=== PATIENT | female | born 1995 | race Caucasian/White ===

== ENCOUNTER 2024-10-08 10:29 | Emergency (ER) | payer OTHER ==
[2024-10-08 10:33] VITALS: PULSE 91; O2SAT 99
== END 2024-10-08 11:53 | disposition left against medical advice (07) ==
LOC: ER 10:29
DX: S01.01XA Laceration without foreign body of scalp, initial encounter (principal); Z53.21 Procedure and treatment not carried out due to patient leaving prior to being seen by health care provider; W22.8XXA Striking against or struck by other objects, initial encounter; Y93.89 Activity, other specified; Y92.89 Other specified places as the place of occurrence of the external cause; Y99.8 Other external cause status